=== PATIENT | female | born 1965 | race Caucasian/White ===

== ENCOUNTER 2021-01-02 11:01 | Emergency (ER) | payer OTHER, SELFPAY ==
[2021-01-02 11:41] VITALS: BP 135/71; PULSE 82; RESP 16; TEMP 36.6; O2SAT 99
[2021-01-02 12:00] VITALS: BP 135/71; PULSE 82; RESP 16; TEMP 36.6; O2SAT 99
--- NOTE | 2021-01-02 12:45 | ED.NECK ---
HPI - Neck Pain/Injury General Chief Complaint: Extremity Injury, Upper Stated Complaint: Shoulder Pain Time Seen by Provider: 01/02/21 12:45 Source: patient Mode of arrival: ambulatory Limitations: no limitations History of Present Illness HPI Narrative: Maribel Dunbar is a 55 yo female with HTN, high cholesterol, comes with left shoulder pain after trying to rescue her canary yesterday.. The pain in her left shoulder is below the trapezius, and can't turn neck or raise left arm higher than 90 degrees. States that she was only able to sleep with stimulator on her shoulder last night. Related Data Home Medications Medication Instructions Recorded Confirmed atorvastatin 01/02/21 baclofen mg 01/02/21 diclofenac sodium PO 01/02/21 hydroxyzine HCl 01/02/21 losartan 01/02/21 metoprolol succinate PO 01/02/21 tramadol mg 01/02/21 Allergies Allergy/AdvReac Type Severity Reaction Status Date / Time lisinopril Allergy Mild cough Verified 09/28/18 07:32 insect venom Allergy Unknown Verified 09/28/18 07:32 Review of Systems Review of Systems: CONSTITUTIONAL: Denies fever, chills, sweats. EYES: Denies visual changes, redness, discharge. ENT: Denies rhinorrhea, congestion, sore throat, otalgia. CARDIOVASCULAR: Denies chest pain, palpitations, edema. RESPIRATORY: Denies dyspnea, wheezing, cough GASTROINTESTINAL: Denies abdominal pain, nausea, vomiting, diarrhea. GENITOURINARY: Denies dysuria, hematuria, abnormal discharge SKIN: Denies rash or itching. NEUROLOGIC: Denies numbness, or focal weakness. PSYCHIATRIC: Denies anxiety or depression. Left shoulder pain PMFSH Past Medical History Medical History High cholesterol HTN (hypertension) Family History Family History Other No acute medical problems Social History Social History (Updated 01/02/21 @ 12:55 by Mae Chaves CNP) Smoking status: Former smoker Alcohol intake: current Comments At time of signature, I agree with nursing past medical, surgical, social and family history. There is no relevant family history pertinent to the presenting complaint. Exam Narrative: GENERAL: This is a well-nourished, well-developed patient, in moderate distress. HEAD: normocephalic, atraumatic. EYES: Sclera clear/white. Vision is grossly intact. EARS: External ears normal. Hearing grossly intact. NOSE: External nose normal without nasal discharge, nares without redness, no rhinorrhea. THROAT: Mucous membranes moist, NECK: Neck supple, CARDIOVASCULAR: Regular rate and rhythm without murmurs, gallops, or rubs. RESPIRATORY: Clear to auscultation. Breath sounds equal bilaterally. No wheezes, rales, or rhonchi. GASTROINTESTINAL: Abdomen soft, SKIN: warm, intact with no suspicious lesions or rash, good texture and turgor. NEURO: awake, alert, and oriented to person, place and time. There were no obvious focal neurologic abnormalities. Steady gait EXTREMITIES: Left shoulder pain is unable to raise arm above 90 degrees. Cannot move arm to posterior, move to the anterior and able to go to 90 degrees, unable to move neck to the left, or look up or down fully BACK: Nontender without deformity Course Course Emergency Course: Patient is complaining of left shoulder pain; is unable to have move arm with full range of motion Started on prednisone, baclofen/Naprosyn to be continued. Continues to use ice or heat also Vital Signs Vital signs: Vital Signs Temperature 97.9 F 01/02/21 11:41 Pulse Rate 82 01/02/21 11:41 Respiratory Rate 16 01/02/21 11:41 Blood Pressure 135/71 01/02/21 11:41 Pulse Oximetry 99 01/02/21 11:41 Temperature 97.9 F 01/02/21 12:00 Pulse Rate 82 01/02/21 12:00 Respiratory Rate 16 01/02/21 12:00 Blood Pressure 135/71 01/02/21 12:00 Pulse Oximetry 99 01/02/21 12:00 Discharge Plan Discharge
[2021-01-02] MEDS: predniSONE 20 MG TABLET 40 MG PO (13:09)
== END 2021-01-02 13:12 | disposition home or self-care (01) ==
PROVIDERS: Emergency Provider Nurse Practitioner
DX: M25.512 Pain in left shoulder (principal); E78.00 Pure hypercholesterolemia, unspecified; I10 Essential (primary) hypertension; Z87.891 Personal history of nicotine dependence
CPT/HCPCS: 99213; G0463; J7512

== ENCOUNTER 2021-01-22 08:58 | Emergency (ER) | payer OTHER, SELFPAY ==
[2021-01-22 09:42] VITALS: BP 144/73; PULSE 72; RESP 18; TEMP 37; O2SAT 98
--- NOTE | 2021-01-22 09:50 | ECG_ITS ---
Measurements Intervals [place] Rate: 71 P: 37 MT: 148 QRS: -15 QRSD: 92 T: 36 QT: 418 QTc: 454 Interpretive Statements SINUS RHYTHM BASELINE ARTIFACT- II, III, AVR, AVF, V1, V3-V6 NORMAL ECG Electronically Signed On 01-22-2021 10:14:33 CDT by Yovanny Fitzpatrick D.O.
[2021-01-22 10:15] LABS: Basophils Absolute Auto 0.1 K/mm3 (0.0-0.1); Basophils Percent Auto 1.5 % (0.2-1.2); Eosinophils Absolute Auto 0.2 K/mm3 (0-0.3); Eosinophils Percent Auto 2.7 % (0-4.4); Hematocrit 35.2 % (37.0-47.0); Hemoglobin 11.7 g/dL (12.0-15.0); Immature Granulocyte Absolute 0.02 K/mm3 (0.00-0.031); Immature Granulocyte Percent A 0.3 % (0-0.5); Lymphocytes Absolute Auto 1.61 K/mm3 (0.9-3.2); Lymphocytes Percent Auto 27.5 % (18.3-44.2); Mean Corpuscular HGB Conc 33.2 g/dl (32-36); Mean Corpuscular Hemoglobin 28.1 pg (26-34); Mean Corpuscular Volume 84.6 fl (80-100); Mean Platelet Volume 9.6 fl (7.4-10.4); Monocytes Absolute Auto 0.5 K/mm3 (0.1-0.6); Monocytes Percent Auto 8.7 % (2.6-8.5); Neutrophils Absolute Auto 3.5 K/mm3 (1.3-6.7); Neutrophils Percent Auto 59.3 % (45.5-73.1); Platelet Count Result 244 k/mm3 (150-375); Red Blood Count 4.16 M/mm3 (4.2-5.4); Red Cell Distribution Width 12.5 % (11.5-14.5); White Blood Count 5.9 K/mm3 (4.5-10.0)
[2021-01-22 10:35] LABS: Add Urine Microscopic? NO; Appearance Urine Clear (Clear); Bilirubin Urine Negative (Negative); Blood Urine Negative (Negative); Color Urine Straw (Yellow); Glucose Urine UA Negative (Negative); Ketones Urine Negative (Negative); Leukocyte Esterase Ur Negative LEU/UL (Negative); Nitrate Urine Negative (Negative); Protein Urine Negative (Negative); Urobilinogen Urine Negative mg/dL (<2.0)
[2021-01-22 10:40] LABS: Alanine Aminotransferase 23 U/L (4-35); Alkaline Phosphatase 89 U/L (38-126); Anion Gap 8 mmol/L (8-16); Aspartate Amino Transferase 36 U/L (14-36); Bilirubin,Total 0.7 mg/dL (0.2-1.3); Blood Urea Nitrogen 13 mg/dL (7-17); Calcium 8.9 mg/dL (8.4-10.2); Carbon Dioxide 23 mmol/L (22-30); Chloride 106 mmol/L (98-107); Estimated CRCL calculation 103 ml/min; Estimated Glomerular Filt Rate > 60; Glucose 125 mg/dL (65-110); Potassium 4.3 mmol/L (3.4-5.0); Sodium 137 mmol/L (137-145)
[2021-01-22] MEDS: ONDANSETRON INJ 4 MG/2 ML VIAL IV PUSH (10:53)
[2021-01-22] MEDS: KETOROLAC 30 MG/ML VIAL (*BKC) IV PUSH (10:56)
[2021-01-22 11:27] VITALS: BP 110/81; PULSE 68; RESP 20; O2SAT 100
--- NOTE | 2021-01-22 12:44 | ED.GENADULT ---
HPI - General Adult General Chief complaint: Headache Stated complaint: elevated bp , h/a Time Seen by Provider: 01/22/21 09:37 Source: patient Mode of arrival: ambulatory Limitations: no limitations History of Present Illness HPI narrative: Patient with history of migraines hypertension presents with chief complaint of throbbing frontal headache and elevated blood pressure readings over the past 3 to 4 days. Patient states that she has had blood pressures in the 140s/100s and a few in the 120s and 30s/80s and 90s. She has not contacted her primary care regarding her elevated blood pressure readings. Patient states metoprolol and losartan. Patient also has a history of migraines. She states she has not taken her migraine abortive medications. Patient denies any vomiting, loss of vision or hearing, worst headache of her life, neurological deficits, speech deficits or any other emergent symptoms. Related Data Home Medications Medication Instructions Recorded Confirmed atorvastatin 01/02/21 baclofen mg 01/02/21 diclofenac sodium PO 01/02/21 hydroxyzine HCl 01/02/21 losartan 01/02/21 metoprolol succinate PO 01/02/21 Allergies Allergy/AdvReac Type Severity Reaction Status Date / Time lisinopril Allergy Mild cough Verified 01/22/21 09:51 insect venom Allergy Unknown Cough Verified 01/22/21 09:51 codeine Allergy Vomiting Verified 01/22/21 09:51 Review of Systems Review of Systems: CONSTITUTIONAL: Denies fever, chills, or sweats. EYES: Denies visual changes, redness, or discharge. ENT: Denies rhinorrhea, congestion, sore throat, or otalgia. CARDIOVASCULAR: Denies chest pain, palpitations, or edema. RESPIRATORY: Denies cough or dyspnea. GASTROINTESTINAL: Denies abdominal pain, nausea, vomiting, or diarrhea. GENITOURINARY: Denies dysuria or hematuria. SKIN: Denies rash or itching. MUSCULOSKELETAL: Denies back pain, joint pain, or myalgia. NEUROLOGIC: Reports headache denies numbness, dizziness, or weakness. PSYCHIATRIC: Denies anxiety or depression. [facility] Past Medical History Medical History High cholesterol HTN (hypertension) Family History Family History Other No acute medical problems Social History Social History (Updated 01/02/21 @ 12:55 by Mae Chaves CNP) Smoking status: Former smoker Alcohol intake: current Exam Narrative: GENERAL: Well-appearing, well-nourished, and in no acute distress. Patient talking and speaking appropriately. Patient is not displaying any signs of pain. HEAD: Normocephalic, atraumatic. EYES: PERRLA and EOMI. no photophobia. Central and peripheral vision intact. NECK: Supple. No adenopathy or masses. Range of motion intact without rigidity. CHEST: Clear to auscultation. No respiratory distress. No wheezes rales or rhonchi HEART: Regular rate and rhythm. No murmur heard. Normal peripheral pulses. ABDOMEN: Soft, nontender, nondistended. EXTREMITIES: Normal range of motion. No edema. SKIN: Warm, dry, no rash. NEURO: No focal deficits. Alert and oriented x3. PSYCH: Normal mood and affect. Course Vital Signs Vital signs: Vital Signs Temperature 98.6 F 01/22/21 09:42 Pulse Rate 72 01/22/21 09:42 Respiratory Rate 18 01/22/21 09:42 Blood Pressure 144/73 H 01/22/21 09:42 Pulse Oximetry 98 01/22/21 09:42 Temperature 98.6 F 01/22/21 09:42 Pulse Rate 70 01/22/21 13:00 Respiratory Rate 16 01/22/21 13:00 Blood Pressure 151/84 H 01/22/21 13:00 Pulse Oximetry 100 01/22/21 13:00 Medical Decision Making [facility] Narrative Medical decision making narrative: Patient's headache is resolved with Toradol. Patient states that she is ready to be discharged home at this time. Patient has not had states you have mildly elevated blood pressures but nothing emergent. Patient has been instructed to follow-up with her primary care an
[2021-01-22 13:00] VITALS: BP 151/84; PULSE 70; RESP 16; O2SAT 100
== END 2021-01-22 13:00 | disposition home or self-care (01) ==
PROVIDERS: Physician Assistant; Emergency Provider Emergency Medicine; PCP Physician Assistant
DX: R51.9 Headache, unspecified (principal); I10 Essential (primary) hypertension; E78.00 Pure hypercholesterolemia, unspecified; Z87.891 Personal history of nicotine dependence
CPT/HCPCS: 36415; 80053; 81003; 85025; 93005; 96374; 96375; 99284; J1885; J2405

== ENCOUNTER 2022-08-02 09:33 | Emergency (ER) | payer OTHER, SELFPAY ==
[2022-08-02 09:39] VITALS: BP 183/95; PULSE 68; RESP 18; TEMP 36.6; O2SAT 100
--- NOTE | 2022-08-02 11:54 | PC.NURSE ---
PT AMBULATORY WITH STEADY GAIT TO NURSES STATION AND SAID I'VE BEEN IN THAT ROOM FOR OVER 2 HOURS AND THIS IS RIDICULOUS! I'M GOING SOMEWHERE ELSE! PT LEFT THE ED BEFORE I COULD SPEAK ANY FURTHER TO HER. GAIT CONTINUED TO BE STEADY SHE LEFT THE DEPARTMENT.
== END 2022-08-02 12:05 | disposition left against medical advice (07) ==
DX: M54.9 Dorsalgia, unspecified (principal)
CPT/HCPCS: 99199